=== PATIENT | male | born 1935 | race Caucasian/White ===

== ENCOUNTER 2019-05-01 09:07 | Emergency (ER) | payer MEDICARE, BC | END 2019-05-01 09:58 | disposition home or self-care (01) | LOC: BURERS 09:07 | DX: H61.23 Impacted cerumen, bilateral (principal); I10 Essential (primary) hypertension; Z86.718 Personal history of other venous thrombosis and embolism; Z79.899 Other long term (current) drug therapy | CPT/HCPCS: 69209 ==

== ENCOUNTER 2020-04-09 09:35 | Emergency (ER) | payer MEDICARE, BC ==
[2020-04-09] MEDS ORDERED: Acetaminophen/Codeine 30-300mg Tablet ONE (09:55)
--- NOTE | 2020-04-09 17:05 | RAD ---
LEFT ELBOW FOUR VIEWS: 04/09/20 A longitudinal fracture is seen through the medial epicondyle of the distal humerus. The fragment hoffman s not appear to be markedly displaced. A joint effusion is present as expected. While there was a lit tle lucency on the outer portion of the radial head, no definite fracture could be confirmed here. IMPRESSION: Fracture of the medial epicondyle. POS: HOME
--- NOTE | 2020-04-09 17:10 | CT ---
CT OF THE BRAIN WITHOUT CONTRAST: 04/09/20 Comparison is made with an older study dated 08/12/08. Additional atrophy has occurred in the interim. The ventricles are normal in size for age and atrophy . There are scattered hypodensities throughout the deep white matter, especially the basal ganglia re gions bilaterally, consistent with chronic ischemic changes and probably prior lacunar infarcts. Some of these were present previously, while others have occurred in the interim. This would imply the po ssibility of periodic embolic episodes. While the scan could not rule out an acute stroke, more than likely these are all longstanding. There certainly was no sign of intracranial bleeding or extra-axia l hematoma. No mass or edema was present. The skull shows no fracture. The lowest slices show evidenc e of chronic left maxillary sinus disease, also with prior surgery to this sinus. IMPRESSION: 1. No acute traumatic intracranial findings. 2. 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 Preliminary report called to Dr. Jacobs at [id number] on 04/09/20. POS: HOME
== END 2020-04-09 11:00 | disposition home or self-care (01) ==
LOC: BURERS 09:35
DX: S42.462A Displaced fracture of medial condyle of left humerus, initial encounter for closed fracture (principal); X58.XXXA Exposure to other specified factors, initial encounter
CPT/HCPCS: 29125; 70450